=== PATIENT | female | born 1985 | race Caucasian/White ===

== ENCOUNTER → 2021-08-24 | Outpatient (CLI) | payer SELFPAY | LOC: EMI 13:19 | DX: R51.9 Headache, unspecified (principal); R90.82 White matter disease, unspecified | CPT/HCPCS: 70553; A9577 ==

== ENCOUNTER → 2021-12-30 | Outpatient (CLI) | payer OTHER ==
[~2021-12-30] VITALS: Ht 180.3 cm; Wt 108.9 kg
== END ==
LOC: OPSV 12:00
DX: G35 Multiple sclerosis (principal)
CPT/HCPCS: 96365; J2930; J7030

== ENCOUNTER → 2021-12-31 | Outpatient (CLI) | payer OTHER ==
[~2021-12-31] VITALS: Ht 180.3 cm; Wt 108.9 kg
== END ==
LOC: OPSV 13:52
DX: G35 Multiple sclerosis (principal); R63.4 Abnormal weight loss
CPT/HCPCS: 96365; J2930; J7030

== ENCOUNTER → 2022-01-04 | Outpatient (CLI) | payer OTHER ==
[~2022-01-04] VITALS: Ht 180.3 cm; Wt 108.9 kg
== END ==
LOC: OPSV 01-03 14:00
DX: G35 Multiple sclerosis (principal)
CPT/HCPCS: 96365; J2930; J7030

== ENCOUNTER → 2022-01-12 | Outpatient (CLI) | payer OTHER | LOC: EMI 08:39 | DX: G35 Multiple sclerosis (principal); M50.30 Other cervical disc degeneration, unspecified cervical region | CPT/HCPCS: 72156; 72157; A9577 ==